=== PATIENT | female | born 1960 ===

== ENCOUNTER → 2016-10-19 | Outpatient (CLI) | payer BC | END | disposition home or self-care (01) | LOC: C.PAPS 15:55 | PROVIDERS: ATTEND Obstetrics & Gynecology | DX: Z01.419 Encounter for gynecological examination (general) (routine) without abnormal findings (principal) ==

== ENCOUNTER → 2016-12-02 | Outpatient (CLI) | payer BC ==
--- NOTE | 2016-12-07 07:52 | MAMMOGRAPHY REPORT ---
BILATERAL DIGITAL SCREENING MAMMOGRAM TOMOSYNTHESIS WITH CAD: 12/02/2016 CLINICAL HISTORY: Routine screening. Patient has no complaints. TECHNIQUE: Bilateral breast tomosynthesis in addition to standard 2D mammography was performed. Curre nt study was also evaluated with a Computer Aided Detection (CAD) system. COMPARISON: No prior exams were available for comparison. BREAST COMPOSITION: The tissue of both breasts is almost entirely fatty. FINDINGS: There is lobulated and angular 22mm mass in the approximate 3:00 middle one third of the l eft breast with biopsy marker clip located 3 mm posterior to the mass. Although this may have been p reviously biopsied, comparison to prior outside mammograms and ultrasounds is recommended to assess s tability. A focal asymmetry in the upper outer posterior right breast could represent normal overlap ping glandular tissue. However, comparison to prior outside mammograms is needed to assess stability . If the outside exams are not obtained in a timely manner, additional spot compression tomosynthesi s views and possible ultrasound are recommended bilaterally. There are a few benign-appearing coarse calcifications bilaterally. No other suspicious mass, jose l ectural distortion or cluster of microcalcifications is seen. IMPRESSION: ACR BI-RADS CATEGORY 0: INCOMPLETE EVALUATION: NEED ADDITIONAL IMAGING EVALUATION The lobulated and angular 22 mm mass in the 3:00 left breast, and focal asymmetry in the upper outer posterior right breast need comparison to prior outside mammograms and/or ultrasound to assess stabil ity. If the outside exams are not obtained in a timely manner, additional imaging workup is needed b ilaterally. The patient will be called to schedule an appointment. Approximately 10% of breast cancers are not detected with mammography. A negative mammographic report should not delay biopsy if a clinically suggestive mass is present. Ofelia Palacio M.D. ay/:12/06/2016 17:07:23 Grain Trimmer: Roxy LEW(Richie)(Ajay), [facility] letter sent: Need Priors 0 BI-RADS Code: ACR BI-RADS Category 0: Incomplete Evaluation: Need Additional Imaging Evaluation
== END | disposition home or self-care (01) ==
LOC: C.MAMM 15:41
PROVIDERS: ATTEND Obstetrics & Gynecology
DX: Z12.31 Encounter for screening mammogram for malignant neoplasm of breast (principal); N63 Unspecified lump in breast; N64.89 Other specified disorders of breast

== ENCOUNTER → 2016-12-31 | Outpatient (CLI) | payer BC ==
--- NOTE | 2016-12-31 13:44 | MAMMOGRAPHY REPORT ---
UNILATERAL RIGHT DIGITAL DIAGNOSTIC MAMMOGRAM TOMOSYNTHESIS AND TARGETED BILATERAL ULTRASOUND: 2016 CLINICAL HISTORY: Callback from screening mammogram for right breast asymmetry and left breast mass. TECHNIQUE: Breast tomosynthesis in addition to standard 2D mammography was performed. Spot compress ion right CC and MLO tomosynthesis images including C views were obtained. COMPARISON: Comparison is made to exam dated: 12/02/2016 mammogram - [facility]. BREAST COMPOSITION: The tissue of the right breast is almost entirely fatty. FINDINGS: The previously described focal asymmetry in the right upper outer quadrant persist on the additional images, however, it has the appearance of normal fibroglandular tissue on the additional t omosynthesis images, without a discrete mass or architectural distortion seen. Targeted ultrasound was performed of the area of the left breast mass seen on the recent screening ma mmogram. In the left breast at 3:00, approximately 6 cm from the nipple, there is a lobulated hypoec hoic solid mass which measures 2.0 x 0.6 x 1.1 cm. This corresponds with the mammographic mass. 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 Given that this was previously biopsied and yielded a fibro adenoma, the mass is likely benign although no priors are available to document stability of the mass . Targeted ultrasound was performed of the right upper outer quadrant in the region of the mammographic asymmetry, which shows sonographically normal tissue without evidence of a mass or other suspicious sonographic normality. IMPRESSION: ACR-BI-RADS CATEGORY 3: PROBABLY BENIGN, TARGETED ULTRASOUND ACR-BI-RADS CATEGORY 3: PRO BABLY BENIGN 1. Focal asymmetry in the right upper outer quadrant, with no suspicious sonographic correlate evide nt. The asymmetry is probably benign and likely represents normal fibroglandular tissue. 2. Lobulated solid 2 cm mass in the left 3:00 breast, which was previously biopsied and yielded a be nign fibroadenoma. However, no priors are available to document stability of the mass. The patient had prior outside mammograms at [facility] in 2008, which we were not able to obtain. We will re-attempt to obtain the prior outside mammograms to confirm stability of bilateral breast findi ngs. If the priors cannot be obtained, then recommend follow-up diagnostic tomosynthesis mammograms and possible ultrasound in 6 months to confirm stability. The patient has been verbally notified of the results. Approximately 10% of breast cancers are not detected with mammography. A negative mammographic report should not delay biopsy if a clinically suggestive mass is present. Giovana Aly M.D. ah/:12/31/2016 08:47:40 Check Writer Salesperson: Nikolay CRUZ)(Ajay), [facility] letter sent: Follow Up Recommended 3 BI-RADS Code: ACR-BI-RADS Category 3: Probably Benign Ultrasound BI-RADS: ACR-BI-RADS Category 3: Pr obably Benign
== END | disposition home or self-care (01) ==
LOC: C.MAMM 08:01
PROVIDERS: ATTEND Obstetrics & Gynecology
DX: N63.0 Unspecified lump in unspecified breast (principal); N64.89 Other specified disorders of breast